=== PATIENT | male | born 1965 | race African-American/Black ===

== ENCOUNTER 2019-09-07 21:08 | Emergency (ER) | payer SELFPAY ==
[~2019-09-07] VITALS: Ht 175.3 cm; Wt 72.7 kg
== END 2019-09-07 21:25 | disposition left against medical advice (07) ==
LOC: ER 21:08
DX: F10.229 Alcohol dependence with intoxication, unspecified (principal); Y90.9 Presence of alcohol in blood, level not specified; Z59.0 Homelessness
CPT/HCPCS: 99283